=== PATIENT | female | born 1985 | race Asian ===

== ENCOUNTER → 2018-05-05 | Outpatient (CLI) | payer OTHER ==
[2018-05-05 16:54] LABS: HEMATOCRIT 38.5 % (36.0-47.0); HEMOGLOBIN 12.9 g/dl (12.0-15.5); MEAN CORPUSCULAR HEMOGLOBIN 30.3 pg (27.0-33.0); MEAN CORPUSCULAR HGB CONC 33.5 g/dl (32.0-36.5); MEAN CORPUSCULAR VOLUME 90.4 fl (80.0-96.0); PLATELET COUNT, AUTOMATED 348 10^3/uL (150-450); RED BLOOD COUNT 4.26 10^6/uL (4.00-5.40); WHITE BLOOD COUNT 6.2 10^3/uL (4.0-10.0)
[2018-05-05 17:04] LABS: ALBUMIN 4.2 GM/DL (3.2-5.2); ALT/SGPT 23 U/L (12-78); BILIRUBIN,TOTAL 0.3 MG/DL (0.2-1.0); BLOOD UREA NITROGEN 14 MG/DL (7-18); CALCIUM LEVEL 8.8 MG/DL (8.5-10.1); CARBON DIOXIDE LEVEL 25 MEQ/L (21-32); CHLORIDE LEVEL 106 MEQ/L (98-107); CREATININE FOR GFR 0.66 MG/DL (0.55-1.30); GLOMERULAR FILTRATION RATE > 60.0 (>60); GLUCOSE, FASTING 85 MG/DL (70-100); SODIUM LEVEL 139 MEQ/L (136-145); TOTAL PROTEIN 7.7 GM/DL (6.4-8.2)
[2018-05-05 17:06] LABS: TESTOSTERONE 39 NG/DL (14-76)
[2018-05-05 17:07] LABS: LUTEINIZING HORMONE 21.2 mIU/mL; PROGESTERONE 0.45 NG/ML; PROLACTIN 8.2 NG/ML
[2018-05-05 17:08] LABS: FOLLICLE STIMULATING HORMONE 9.4 mIU/mL
== END ==
LOC: M LRY 13:02
PROVIDERS: ATTEND Family Medicine
DX: N97.1 Female infertility of tubal origin (principal)

== ENCOUNTER → 2018-07-04 | Outpatient (CLI) | payer OTHER ==
--- NOTE | 2018-07-05 09:30 | REP ---
Thoracic spine series: Three views. History: Low back pain. Findings: Thoracic vertebral body heights are preserved. Alignment is normal. Pedicles and posterior elements are intact. No paravertebral soft-tissue mass is seen. Impression: Negative thoracic spine radiographs. Electronically Signed by Russel Curry MD 07/04/2018 12:18 P
--- NOTE | 2018-07-05 09:30 | REP ---
Lumbar spine series: Five views. History: Low back pain. Findings: Five views of the lumbar spine show preserved vertebral body heights and normal alignment. Disc spaces are maintained. Pedicles and posterior elements are intact. There is no evidence of spondylolysis or spondylolisthesis. Psoas margins are symmetric. Sacrum and SI joints are unremarkable. Impression: Negative radiographs of the lumbar spine. Electronically Signed by Russel Curry MD 07/04/2018 12:19 P
== END ==
LOC: M LRY 11:24
PROVIDERS: ATTEND Family Medicine
DX: M54.5 Low back pain (principal)

== ENCOUNTER → 2019-04-08 | Outpatient (CLI) | payer OTHER ==
--- NOTE | 2019-04-08 16:28 | REP ---
Chest x-ray: Two views. History: Pneumonia. . Comparison study: No comparison study. . Findings: The lungs are well inflated and free of infiltrate. The pleural angles are sharp. The heart size is normal. Pulmonary vasculature is not increased. No significant bony abnormality is seen. Impression: Negative chest x-ray. Electronically Signed by Russel Curry MD 04/08/2019 04:20 P
== END ==
LOC: M LRY 15:43
PROVIDERS: ATTEND Family Medicine
DX: J16.8 Pneumonia due to other specified infectious organisms (principal)

== ENCOUNTER → 2019-06-24 | Outpatient (CLI) | payer OTHER ==
[2019-06-24 11:07] LABS: ESTRADIOL 548.1 PG/ML; PROGESTERONE 35.95 NG/ML
== END ==
LOC: M LAB 09:53
PROVIDERS: ATTEND Obstetrics & Gynecology Reproductive Endocrinology
DX: E28.9 Ovarian dysfunction, unspecified (principal)

== ENCOUNTER → 2019-06-29 | Outpatient (CLI) | payer OTHER ==
[2019-06-29 09:43] LABS: HCG, SERUM QUANTITATIVE < 1.0 MIU/ML
[2019-06-29 09:52] LABS: PROGESTERONE 30.37 NG/ML
== END ==
LOC: M LAB 08:56
PROVIDERS: ATTEND Obstetrics & Gynecology Reproductive Endocrinology
DX: Z32.00 Encounter for pregnancy test, result unknown (principal)

== ENCOUNTER → 2019-10-06 | Outpatient (CLI) | payer OTHER ==
[2019-10-06 10:25] LABS: HEMATOCRIT 38.5 % (36.0-47.0); HEMOGLOBIN 12.8 g/dl (12.0-15.5); MEAN CORPUSCULAR HEMOGLOBIN 30.3 pg (27.0-33.0); MEAN CORPUSCULAR HGB CONC 33.2 g/dl (32.0-36.5); MEAN CORPUSCULAR VOLUME 91.2 fl (80.0-96.0); PLATELET COUNT, AUTOMATED 385 10^3/uL (150-450); RED BLOOD COUNT 4.22 10^6/uL (4.00-5.40); WHITE BLOOD COUNT 6.1 10^3/uL (4.0-10.0)
[2019-10-06 10:59] LABS: ALBUMIN 4.2 GM/DL (3.2-5.2); ALT/SGPT 18 U/L (12-78); BILIRUBIN,TOTAL 0.4 MG/DL (0.2-1.0); BLOOD UREA NITROGEN 9 MG/DL (7-18); CALCIUM LEVEL 8.8 MG/DL (8.5-10.1); CARBON DIOXIDE LEVEL 27 MEQ/L (21-32); CHLORIDE LEVEL 106 MEQ/L (98-107); CREATININE FOR GFR 0.56 MG/DL (0.55-1.30); GLOMERULAR FILTRATION RATE > 60.0 (>60); GLUCOSE, FASTING 80 MG/DL (70-100); HCG, SERUM QUANTITATIVE < 1.0 MIU/ML; POTASSIUM SERUM 3.8 MEQ/L (3.5-5.1); SODIUM LEVEL 138 MEQ/L (136-145); TOTAL PROTEIN 8.1 GM/DL (6.4-8.2)
== END ==
LOC: M LAB 09:54
PROVIDERS: ATTEND Obstetrics & Gynecology Reproductive Endocrinology
DX: E28.9 Ovarian dysfunction, unspecified (principal)

== ENCOUNTER → 2019-11-04 | Outpatient (CLI) | payer OTHER ==
[2019-12-30 16:45] LABS: ESTRADIOL 24.8 PG/ML; FOLLICLE STIMULATING HORMONE 8.6 mIU/mL; HCG, SERUM QUANTITATIVE < 1.0 MIU/ML; LUTEINIZING HORMONE 6.7 mIU/mL; PROGESTERONE 0.44 NG/ML
== END ==
LOC: M LAB 09:37
PROVIDERS: ATTEND Obstetrics & Gynecology Reproductive Endocrinology
DX: E28.9 Ovarian dysfunction, unspecified (principal)

== ENCOUNTER → 2019-11-11 | Outpatient (CLI) | payer OTHER ==
--- NOTE | 2019-11-11 10:20 | REPVR ---
PROCEDURE INFORMATION: Exam: US Pelvis, Transvaginal Exam date and time: 11/11/2019 9:46 AM Age: 33 years old Clinical indication: Screening exam; Follicle study for infertility TECHNIQUE: Imaging protocol: Real-time transvaginal pelvic ultrasound with image documentation. Transvaginal imaging was used for better evaluation of the endometrium and adnexa. COMPARISON: No relevant prior studies available. FINDINGS: Uterus/cervix: Retroverted uterus measuring 7.4 x 4.0 x 4.6 cm. No myometrial mass. Endometrial stripe measures 7 mm in thickness. Cervix is unremarkable. Right adnexa: Right ovary measures 2.8 x 1.6 x 1.5 cm. There are no follicles greater than 1 cm. There are 12 subcentimeter follicles ranging in size from 3.4 to 7.6 mm. Left adnexa: Left ovary measures 3.1 x 1.4 x 2.1 cm. There are no follicles greater than 1 cm. There are 15 subcentimeter follicles ranging in size from 1.9 to 5.2 mm. Free fluid: Small amount of free fluid within the right adnexa. IMPRESSION: There are 12 subcentimeter follicles on the right and 15 subcentimeter follicles on the left. There are no follicles on either side greater than 1 cm. Electronically signed by: Jacob Verduzco On 11/11/2019 10:20:38 AM
[2019-11-11 15:06] LABS: ESTRADIOL 286.9 PG/ML; LUTEINIZING HORMONE 8.6 mIU/mL; PROGESTERONE 0.21 NG/ML
== END ==
LOC: M RAD 09:24
PROVIDERS: ATTEND Obstetrics & Gynecology Reproductive Endocrinology
DX: E28.9 Ovarian dysfunction, unspecified (principal)

== ENCOUNTER → 2019-11-15 | Outpatient (CLI) | payer OTHER ==
[2019-11-15 12:31] LABS: PROLACTIN 12.6 NG/ML
[2019-11-15 17:07] LABS: PROGESTERONE 0.21 NG/ML
== END ==
LOC: M LAB 09:25
PROVIDERS: ATTEND Obstetrics & Gynecology Reproductive Endocrinology
DX: Z01.84 Encounter for antibody response examination (principal); E28.9 Ovarian dysfunction, unspecified

== ENCOUNTER → 2019-11-15 | Outpatient (CLI) | payer OTHER | LOC: M LAB 09:22 | PROVIDERS: ATTEND Family Medicine | DX: Z01.84 Encounter for antibody response examination (principal) ==

== ENCOUNTER → 2019-11-25 | Outpatient (CLI) | payer OTHER ==
[2019-11-25 10:16] LABS: ESTRADIOL 161.6 PG/ML; PROGESTERONE 58.93 NG/ML
== END ==
LOC: M LAB 07:36
PROVIDERS: ATTEND Obstetrics & Gynecology Reproductive Endocrinology
DX: E28.9 Ovarian dysfunction, unspecified (principal)

== ENCOUNTER → 2019-11-30 | Outpatient (CLI) | payer OTHER ==
[2019-11-30 11:19] LABS: HCG, SERUM QUANTITATIVE < 1.0 MIU/ML
[2019-11-30 13:12] LABS: PROGESTERONE 51.58 NG/ML
== END ==
LOC: M LAB 09:34
PROVIDERS: ATTEND Obstetrics & Gynecology Reproductive Endocrinology
DX: Z32.00 Encounter for pregnancy test, result unknown (principal)